=== PATIENT | male | born 1935 | race Caucasian/White ===

== ENCOUNTER 2017-07-14 07:28 | Outpatient (CLI) | payer MEDICARE ==
--- NOTE | 2017-07-14 08:02 | RAD ---
CHEST PA AND LATERAL: HISTORY: An 81-year-old male with dyspnea. COMPARISON: 06/14/2017 FINDINGS: Heart size is within normal limits. Lungs are clear. No pneumonia, edema, or pleural effusion. IMPRESSION: No active intrathoracic disease. Resolution of the previously noted right-sided pneumonia, compared to prior study. POS: [facility]
== END 2017-07-14 07:29 | disposition home or self-care (01) ==
LOC: RAD 07:28
PROVIDERS: ATTEND Internal Medicine Critical Care Medicine
DX: R06.00 Dyspnea, unspecified (principal); I48.0 Paroxysmal atrial fibrillation; J18.9 Pneumonia, unspecified organism; Z79.899 Other long term (current) drug therapy
CPT/HCPCS: 71020

== ENCOUNTER 2017-08-24 12:27 | Outpatient (CLI) | payer MEDICARE ==
--- NOTE | 2017-08-24 13:22 | RAD ---
CHEST PA AND LATERAL: History: 82-year-old male with dyspnea. Comparison: 07-14-17 FINDINGS: Heart size is within normal limits. There is atherosclerosis of the aorta with some ectasia. Stable b iapical pleural thickening. IMPRESSION: Stable bilateral chronic changes. No acute intrathoracic disease. POS: [facility]
== END 2017-08-24 12:28 | disposition home or self-care (01) ==
LOC: RAD 12:27
PROVIDERS: ATTEND Internal Medicine Critical Care Medicine
DX: R06.00 Dyspnea, unspecified (principal)
CPT/HCPCS: 71020

== ENCOUNTER 2018-01-03 16:03 | Inpatient (IN) | payer MEDICARE ==
[2018-01-03 16:44] LABS: #Basophils 0.1 thou/uL (0.0-0.2); #Eosinphils 0.1 thou/uL (0.0-0.7); #Lymphocytes 1.3 thou/uL (1.20-3.40); #Monocytes 0.8 thou/uL (0.11-0.59); #Neutrophils 5.6 thou/uL (1.40-6.50); %Basophils 0.7 % (0.0-1.0); %Lymphocytes 17.1 % (21.0-51.0); %Neutrophils 71.1 % (42.0-75.0); Hemoglobin 14.2 g/dL (14.0-18.0); Mean Corpuscular HGB CONC 31.7 g/dL (32.0-36.0); Mean Corpuscular Hemoglobin 31.4 pg (27.0-31.0); Mean Corpuscular Volume 99.1 fl (80.0-94.0); Mean Platelet Volume 9.3 fL (7.4-10.4); Platelet Count 110 thou/uL (130-400); RBC Distribution Width 14.9 % (11.5-14.5); Red Blood Cell (RBC) Count 4.51 mill/uL (4.70-6.10); White Blood Cell (WBC) Count 7.8 thou/uL (4.8-10.8)
[2018-01-03] MEDS ORDERED: Metoprolol Tartrate 5 MG/5 ML VIAL ONE (16:56)
[2018-01-03 17:04] LABS: ALT (SGPT) 14 U/L (8-55); AST (SGOT) 17 U/L (5-34); Albumin 3.9 g/dL (3.4-4.8); Alkaline Phosphatase 85 U/L (40-150); Anion Gap 13 mmol/L (10-20); BUN (Urea Nitrogen) 16 mg/dL (8.4-25.7); Bilirubin, Total 1.8 mg/dL (0.2-1.2); Calc. Creatinine Clearance 0 mL/min (70-130); Calcium 9.3 mg/dL (7.8-10.44); Carbon Dioxide 28 mmol/L (23-31); Chloride 99 mmol/L (98-107); Estimated GFR-MDRD 78; Globulin 2.8 g/dL (2.4-3.5); Glucose 95 mg/dL (83-110); Potassium 4.1 mmol/L (3.5-5.1); Protein, Total 6.7 g/dL (5.8-8.1); Sodium 136 mmol/L (136-145)
[2018-01-03 17:09] LABS: CKMB 1.2 ng/mL (0-6.6)
[2018-01-03] MEDS ORDERED: hydrALAZINE 10 MG TAB PO SCH (17:30)
[2018-01-03] MEDS ORDERED: Furosemide 40 MG/4 ML VIAL ONE (17:43)
[2018-01-03 17:47] LABS: Digoxin 1.23 ng/mL (0.8-2.0)
--- NOTE | 2018-01-03 17:52 | ULT ---
DOPPLER VENOUS ULTRASOUND OF THE LEFT LOWER EXTREMITY: INDICATIONS: Left lower extremity edema. TECHNIQUE: Patel-scale, color Doppler, and vascular duplex with spectral analysis was performed of the deep venou s structures of both lower extremities. The common femoral vein, superficial femoral vein, popliteal vein, posterior tibial vein, proximal greater saphenous, and proximal profunda veins were assessed bi laterally. FINDINGS: There is normal compression, flow, and augmentation seen within the deep venous structures of the lef t lower extremity. IMPRESSION: No evidence of deep venous thrombosis in the left lower extremity. POS: [facility]
[2018-01-03] MEDS ORDERED: Ketorolac Tromethamine 30 MG/ML VIAL ONE (18:13)
[2018-01-03] MEDS ORDERED: Acetaminophen 325 MG TAB PO PRN (18:13)
[2018-01-03] MEDS ORDERED: oxyCODONE 5 MG TAB PO PRN (18:24)
[2018-01-03] MEDS ORDERED: cefTRIAXone Sodium 1 MG in Syringe 0 ML IVPB SCH ×3 (18:30)
[2018-01-03] MEDS ORDERED: hydrALAZINE 10 MG TAB PO PRN (18:58)
--- NOTE | 2018-01-03 19:07 | RAD ---
AP VIEW CHEST: INDICATIONS: Cough and congestion. COMPARISON: 06/14/2017 FINDINGS: There is cardiomegaly without appreciable pulmonary vascular congestion. The lungs are clear. No pl eural effusion is evident. No acute osseous abnormality is evident. IMPRESSION: Cardiomegaly without overt radiographic evidence of congestive heart failure. POS: [facility]
[2018-01-03] MEDS: Ipratropium Bromide 2.5 ml Neb NEB SCH ×2 (19:15→22:17)
[2018-01-03] MEDS: Azithromycin 500 MG in Sodium Chloride 0.9% 250 ML 250 ML IVPB SCH (20:22)
[2018-01-03] MEDS: cefTRIAXone\\ROCEPHIN 1 GM, Syringe 0.4 ML in Sterile Water 9.6 ML SLOW IVP SCH (20:22)
[2018-01-03 20:34] LABS: CKMB 1.2 ng/mL (0-6.6); Troponin I 0.047 ng/mL (< 0.028)
--- NOTE | 2018-01-03 20:47 | HP ---
PRIMARY CARE PHYSICIAN: Lizeth Evans M.D. HISTORY OF PRESENT ILLNESS: The patient is an 82-year-old male with past medical history of chronic atrial fibrillation, on Xarelto; coronary artery disease, status post CABG; history of smoking; who p resented to the hospital with complaints of cough and not feeling well for the past 2-3 days. The pa loraine states that he has not been feeling well for the past week; however, for the past couple of day s, he has been coughing up white foamy sputum. The patient denies any fevers or chills, but states t hat he did have some runny nose. The patient denies any chest pain. The patient states that he does have malaise all over. The patient has been sleeping for the past few days on a recliner chair mini use of chronic right leg pain. The patient denies any PND. The patient states that he does feel a l ittle short of breath at home on ambulation. The patient states that he does not have a nebulizer an d does not have any inhalers at home. PAST MEDICAL HISTORY: 1. Chronic atrial fibrillation, on Xarelto. 2. Coronary artery disease, status post CABG. 3. Hypertension 4. Prostate cancer, completed radiation. 5. Chronic pain syndrome. 6. Peripheral vascular disease. 7. Gout. 8. Degenerative joint disease. 9. Reflux. PAST SURGICAL HISTORY: He had cardiac catheterization in 1999, had a cataract surgery, and skin canc er removal and also bypass. ALLERGIES: He has no known drug allergies. MEDICATIONS: From the ER were as the following: He takes allopurinol 300 mg daily; carvedilol 12.5 mg b.i.d.; digoxin 125 mcg daily; furosemide 20 mg Wednesday, Wednesday and Wednesday; lisinopril 40 mg maryann ly; multivitamin 1 daily; omeprazole 20 mg daily; Crestor 20 mg daily; hydralazine 10 mg t.i.d. p.r.n .; nitroglycerin 0.4 sublingual as needed; Xarelto 15 mg daily in the morning. SOCIAL HISTORY: The patient currently lives at home. He has a history of smoking in the past. Reynaldo ks socially and does not smoke anymore. FAMILY HISTORY: Positive for heart disease and cancer. REVIEW OF SYSTEMS: The following complete review of systems was negative, unless otherwise mentioned in the HPI or below: Constitutional: Weight loss or gain, ability to conduct usual activities. Sk in: Rash, itching. Eyes: Double vision, pain. ENT/Mouth: Nose bleeding, neck stiffness, pain, te nderness. Cardiovascular: Palpitations, dyspnea on exertion, orthopnea. Respiratory: Shortness of breath, wheezing, cough, hemoptysis, fever or night sweats. Gastrointestinal: Poor appetite, abdom inal pain, heartburn, nausea, vomiting, constipation, or diarrhea. Genitourinary: Urgency, frequenc y, dysuria, nocturia. Musculoskeletal: Pain, swelling. Neurologic/Psychiatric: Anxiety, depressio n. Allergy/Immunologic: Skin rash, bleeding tendency. All negative except for the ones mentioned a fracisco in the HPI. LABORATORY AND X-RAY FINDINGS: The patient's WBCs of 7.8, hemoglobin of 14.2, hematocrit of 44.7, pl atelets of 110, no bands noted. Chemistry: Sodium of 136, potassium 4.1, chloride of 99, anion gap of 13, BUN of 16, creatinine 0.93, mildly elevated bilirubin at 1.8. AST, ALT, alkaline phosphatase are normal. Troponins initially were 0.05. BNP was 635. The patient's chest x-ray was reviewed. I t appears he has got some hyperinflated lungs. I do not see this could be a possible little bit more prominent haziness on the right lower lobe; however, this could just be a little bit of fluid also. Respiratory viral panel is pending. PHYSICAL EXAMINATION: VITAL SIGNS: As following: Temperature of 97.8, blood pressure of 147/100, pulse rate of 75, respir ations are 18. He is 92% on room air. GENERAL: He is awake, alert, appears ill. CARDIOVASCULAR: S1, S2 present, irregularly irregular. LUNGS: Has coarse rhonchi all over with mild expiratory wheezing. ABDOMEN: Soft, nontender. Bowel sounds are present x2. HEENT: Has some fullness in his upper maxillary sinuses. No lymphadenopathy noted. EXTREMITIES: No edema. Pedal pulses are present x2. ASSESSMENT AND PLAN: The patient is a very pleasant 82-year-old male who initially presented to the hospital with complaints of shortness of breath. 1. Shortness of breath, possible due to viral versus bacterial etiology, versus mild diastolic dysfu nction versus a possible mild chronic obstructive pulmonary disease exacerbation. On the monitor whe n I was in the room, the patient's heart rate would fluctuate from 80s-145, which would not last for very long at the tachycardia and he would come back down to the 80s or the 70s. Could be possible si ck sinus syndrome. The patient's last echo was in 2015 with ejection fraction of 50% to 55%. We ever l repeat the echocardiogram. His proBNP is mildly elevated at 635. We will continue IV diuretics; h owever, no lower extremity edema has been noted and clinically the patient appears to be a little bit on the dehydrated side. No significant JVD also noted. We will check a procalcitonin level. X-ray does not appear to be impressive; however, I will wait for the official read. We will check a respi ratory viral panel, which is also pending. We will cover for patient for antibiotics for community-a cquired pneumonia for now. May de-escalate in the morning. There is a possibility that may be this patient's underlying cold or congestion could have caused some irritation, which could cause some tac hybrady syndrome, I am not sure. We will find out a little bit more once the echo is done. The deborah ent states that he has been feeling some palpitations for the past few days. Also, we will start the patient on ipratropium. We will hold off on the albuterol. We will not start the patient on some s teroids. I do not think at this point he needs steroids. 2. Elevated troponins. No significant EKG changes. He does appear to be tachycardic, it could be d emand ischemia. We will check echocardiogram if patient continues to have sick sinus syndrome. His heart rate is in the 60s or 70s or 80s and then goes up to the 140s and 150s; however, is not sustain ing, may consider getting a Cardiology on board. 3. Chronic atrial fibrillation. We will continue the patient's Xarelto. 4. Hypertension. We will continue patient's home medications. 5. Deep venous thrombosis prophylaxis. The patient is already on Xarelto.
[2018-01-03] MEDS ORDERED: Diltiazem HCl SR 60 mg Capsule PO SCH (21:00)
[2018-01-03 22:51] VITALS: BMI 19.7
[2018-01-03 23:57] LABS: Troponin I 0.056 ng/mL (< 0.028)
[2018-01-04] MEDS: Ipratropium Bromide 2.5 ml Neb NEB SCH ×6 (02:22→22:33)
[2018-01-04 05:16] LABS: #Eosinphils 0.2 thou/uL (0.0-0.7); #Lymphocytes 1.4 thou/uL (1.20-3.40); #Monocytes 0.8 thou/uL (0.11-0.59); #Neutrophils 3.9 thou/uL (1.40-6.50); %Basophils 0.1 % (0.0-1.0); %Eosinophils 2.6 % (0.0-10.0); %Lymphocytes 22.8 % (21.0-51.0); %Monocytes 12.5 % (0.0-10.0); %Neutrophils 61.9 % (42.0-75.0); Hemoglobin 13.2 g/dL (14.0-18.0); Mean Corpuscular HGB CONC 32.7 g/dL (32.0-36.0); Mean Corpuscular Hemoglobin 31.6 pg (27.0-31.0); Mean Corpuscular Volume 96.4 fl (80.0-94.0); Mean Platelet Volume 9.1 fL (7.4-10.4); Platelet Count 96 thou/uL (130-400); RBC Distribution Width 14.7 % (11.5-14.5); White Blood Cell (WBC) Count 6.3 thou/uL (4.8-10.8)
[2018-01-04 05:37] LABS: ALT (SGPT) 12 U/L (8-55); AST (SGOT) 18 U/L (5-34); Albumin 3.3 g/dL (3.4-4.8); Alkaline Phosphatase 72 U/L (40-150); Anion Gap 13 mmol/L (10-20); BUN (Urea Nitrogen) 19 mg/dL (8.4-25.7); Bilirubin, Total 1.2 mg/dL (0.2-1.2); Calc. Creatinine Clearance 41 mL/min (70-130); Calcium 8.8 mg/dL (7.8-10.44); Carbon Dioxide 30 mmol/L (23-31); Chloride 99 mmol/L (98-107); Estimated GFR-MDRD 62; Globulin 2.4 g/dL (2.4-3.5); Glucose 81 mg/dL (83-110); Potassium 4.1 mmol/L (3.5-5.1); Protein, Total 5.7 g/dL (5.8-8.1); Sodium 138 mmol/L (136-145)
[2018-01-04] MEDS ORDERED: Furosemide 40 MG/4 ML VIAL SLOW IVP SCH (06:00)
[2018-01-04] MEDS: Furosemide 40 MG/4 ML VIAL SLOW IVP SCH (07:12)
[2018-01-04] MEDS: Carvedilol 6.25 MG TAB PO SCH ×2 (08:11→16:56)
[2018-01-04] MEDS: Allopurinol 300 MG TAB PO SCH (08:11)
[2018-01-04] MEDS: Digoxin 0.125 MG TAB PO SCH (08:12)
[2018-01-04] MEDS: Ferrous Sulfate 325 MG TAB PO SCH (08:12)
[2018-01-04] MEDS: Lisinopril 20 MG TAB PO SCH (08:12)
[2018-01-04] MEDS: Rosuvastatin 20 MG TAB PO SCH ×2 (08:13)
[2018-01-04] MEDS: Rivaroxaban 15 MG TAB PO SCH (08:13)
[2018-01-04] MEDS: Saccharomyces boulardii 250 MG CAP PO SCH (08:13)
[2018-01-04] MEDS ORDERED: Gabapentin 300 MG CAP PO SCH (09:00)
[2018-01-04] MEDS ORDERED: Lisinopril 20 MG TAB PO SCH (09:00)
[2018-01-04] MEDS ORDERED: hydrALAZINE 10 MG TAB PO PRN (11:10)
--- NOTE | 2018-01-04 13:05 | CON ---
DATE OF CONSULTATION: 01/04/2018 REASON FOR CONSULTATION: Elevated troponin. HISTORY OF PRESENT ILLNESS: Mr. Mujica is an 82-year-old gentleman who is a patient of Dr. Javan Wheeler. He has a history of CAD, status post stent for inferior [place]. There is a notation about a pre vious history of bypass surgery which has not occurred. He recently states he was having coughing, spitting and phlegm production. He had thick mucus noted. No chest pain or pressure noted. His shortness of breath has been chronic. He is a previous smoke r and also continues to dip tobacco. His troponin was in the indeterminate range, therefore, prompti ng the consultation. PAST MEDICAL HISTORY: Chronic atrial fibrillation, DJD, PVD, prostate cancer, hypertension, CAD, sta tus post [place], acid reflux, cataract surgery, skin surgery. ALLERGIES: None. MEDICATIONS: Include allopurinol, digoxin, Lasix, multivitamin, omeprazole, Crestor, Xarelto, hydral azine and lisinopril. SOCIAL HISTORY: Positive dip tobacco. FAMILY HISTORY: Negative for CAD. REVIEW OF SYSTEMS: Twelve-point review of systems is reviewed as above, otherwise negative. PHYSICAL EXAMINATION: GENERAL: Patient is a pleasant male who is in no acute distress. The patient appears his stated age . VITAL SIGNS: Blood pressure 137/94, pulse 98, temperature afebrile. NEUROLOGIC: The patient is alert and oriented times 3 with no focal neurologic deficits. HEENT: Sclerae without icterus. Mouth has moist mucous membranes with normal pallor. NECK: No JVD. Carotid upstroke brisk. No bruits bilaterally. LUNGS: Clear to auscultation with unlabored respirations. BACK: No scoliosis or kyphosis. CARDIAC: Irregularly irregular. ABDOMEN: Soft, nontender, nondistended. No peritoneal signs present. No hepatosplenomegaly. No ab normal striae. EXTREMITIES: 2+ femoral and 2+ dorsalis pedis pulses. No cyanosis, clubbing, or edema. SKIN: No gross abnormalities. PERTINENT LABORATORY DATA: Hemoglobin 13.2. Peak troponin 0.056. BNP of 3635. IMPRESSION: 1. Elevated troponin. 2. Bronchitis versus upper respiratory infection. 3. Coronary artery disease. 4. Status post myocardial infarction. RECOMMENDATIONS: Mr. Mujica from a CV standpoint appears stable. His troponin is likely demand isch emia. This is not felt to be an acute coronary event. He appears to be stable. At this point, we w ould recommend continued pulmonary support. We will place him on secondary risk factor modification from a CAD standpoint. Further recommendations per Dr. Javan Wheeler in a.m.
--- NOTE | 2018-01-04 13:55 | PDOC.PN ---
- Subjective Encounter Start Date: 01/04/18 Encounter Start Time: 09:00 Patient is seen today, alert and oriented. Admitted with CHF and chest pain, is doing fine now, remains on oxygen. - Objective Resuscitation Status: Resuscitation Status FULL:Full Resuscitation MAR Reviewed: Yes Vital Signs & Weight: Vital Signs (12 hours) Temp Pulse Pulse Resp BP BP Pulse Ox 01/04/18 13:45 93 15 95 01/04/18 12:00 98.2 F 78 24 H 118/60 96 01/04/18 11:04 98 16 01/04/18 09:20 01/04/18 09:15 87 01/04/18 08:12 96 137/94 H 01/04/18 08:11 137/94 H 01/04/18 08:00 99.9 F H 98 24 H 137/94 H 95 01/04/18 07:09 96 01/04/18 07:06 80 20 96 01/04/18 04:00 99.9 F H 132 H 20 157/87 H 01/04/18 03:42 93 L Pulse Ox Pulse Ox 01/04/18 13:45 01/04/18 12:00 01/04/18 11:04 01/04/18 09:20 95 01/04/18 09:15 95 90 L 01/04/18 08:12 01/04/18 08:11 01/04/18 08:00 01/04/18 07:09 01/04/18 07:06 01/04/18 04:00 01/04/18 03:42 Weight Weight 126 lb Result Diagrams: 01/04/18 03:47 01/04/18 03:47 Radiology Reviewed by me: Yes EKG Reviewed by me: Yes Phys Exam - Physical Examination HEENT: PERRLA, moist MMs Neck: no nodes, no JVD Respiratory: wheezing present Crackles bilaterally Cardiovascular: RRR, no significant murmur Gastrointestinal: soft, non-tender Musculoskeletal: no edema, pulses present Neurological: non-focal, normal sensation Lymphatic: no nodes Psychiatric: normal affect, A&O x 3 Skin: no rash, normal turgor Dx/Plan (1) CHF (congestive heart failure) Code(s): I50.9 - HEART FAILURE, UNSPECIFIED Status: Acute Qualifiers: Qualified Code(s): I50.23 - Acute on chronic systolic (congestive) heart failure Comment: Will continue with Lasix, Pt remains on oxygen, Will clsoley monitor pending Echo (2) Respiratory failure Code(s): J96.90 - RESPIRATORY FAILURE, UNSP, UNSP W HYPOXIA OR HYPERCAPNIA Status: Acute Comment: s/p extubation earlier this AM. (3) Atrial fibrillation Code(s): I48.91 - UNSPECIFIED ATRIAL FIBRILLATION Status: Chronic Qualifiers: Atrial fibrillation type: chronic Qualified Code(s): I48.2 - Chronic atrial fibrillation Comment: on Xarelto, Will cotninue to Monitor, pt on Digoxin 0.125mg daily. rate controlled enow. (4) HTN (hypertension) Code(s): I10 - ESSENTIAL (PRIMARY) HYPERTENSION Status: Chronic Comment: Restrted home lisinopril 40mg po daily. (5) GINO (acute kidney injury) Code(s): N17.9 - ACUTE KIDNEY FAILURE, UNSPECIFIED Status: Resolved Comment : Continue to monitor renal fucntions while on lasix, likely cardiorenal. (6) NSTEMI (non-ST elevated myocardial infarction) Code(s): I21.4 - NON-ST ELEVATION (NSTEMI) MYOCARDIAL INFARCTION Status: Acute Comment: Likely demand ischemia, but worseing Tro levels Noted, so will consult Cardiology. Will check Echo for wall motion. (7) Acute exacerbation of chronic bronchitis Code(s): J20.9 - ACUTE BRONCHITIS, UNSPECIFIED; J42 - UNSPECIFIED CHRONIC BRONCHITIS Status: Acute Comment: Will cotninue with IV antibiotics now, No evidence of Pneumonia Noted. - Plan cont current plan of care, plan discussed w/ family, continue antibiotics, respiratory therapy, incentive spirometry, DVT proph w/lovenox * . - Discharge Day Encounter end time: 09:35 Review of Systems - Review of Systems Constitutional: negative: fever, chills, sweats, weakness, malaise, other Eyes: negative: Pain, Vision Change, Conjunctivae Inflammation, Eyelid Inflammation, Redness, Other ENT: negative: Ear Pain, Ear Discharge, Nose Pain, Nose Discharge, Nose Congestion, Mouth Pain, Mouth Swelling, Throat Pain, Throat Swelling, Other Respiratory: negative: Cough, Dry, Shortness of Breath, Hemoptysis, SOB with Excertion, Pleuritic Pain, Sputum, Wheezing Cardiovascular: edema. negative: chest pain, palpitations, orthopnea, paroxysmal nocturnal dyspnea, light headedness, other Gastrointestinal: Nausea, Vomiting Genitourinary: Dysuria, Frequency Musculoskeletal: Neck Pain, Shoulder Pain, Arm Pain Skin: Rash, Lesions - Medications/Allergies Allergies/Adverse Reactions: Allergies Allergy/AdvReac Type Severity Reaction Status Date / Time No Known Allergies Allergy Unverified 06/11/17 08:18 Medications: Current Medications Acetaminophen (Tylenol) 650 mg PO Q4H PRN PRN Reason: Headache/Fever or Pain Allopurinol (Zyloprim) 300 mg PO DAILY [facility] Last Admin: 01/04/18 08:11 Dose: 300 mg Carvedilol (Coreg) 12.5 mg PO BID-[facility] Last Admin: 01/04/18 08:11 Dose: 12.5 mg Digoxin (Lanoxin) 0.125 mg PO DAILY [facility] Last Admin: 01/04/18 08:12 Dose: 0.125 mg Ferrous Sulfate (Feosol) 325 mg PO DAILY [facility] Last Admin: 01/04/18 08:12 Dose: 325 mg Furosemide (Lasix) 40 mg SLOW IVP DAILY [facility] Last Admin: 01/04/18 07:12 Dose: 40 mg Hydralazine HCl (Apresoline) 10 mg PO TID PRN PRN Reason: Blood Pressure Hydralazine HCl (Apresoline) 10 mg PO TID PRN PRN Reason: Hypertension Azithromycin 500 mg/ Sodium (Chloride) 250 mls @ 250 mls/hr IVPB Q24HR [facility] Last Admin: 01/03/18 20:22 Dose: 250 mls Ceftriaxone Sodium 1 gm/ (Syringe 0.4 ml/ Sterile Water) 10 mls @ 120 mls/hr SLOW IVP Q24HR [facility] Last Admin: 01/03/18 20:22 Dose: 10 mls Ipratropium [place] (Atrovent) 2.5 ml NEB [id number] [facility] Last Admin: 01/04/18 13:45 Dose: 2.5 ml Lisinopril (Zestril) 40 mg PO DAILY [facility] Last Admin: 01/04/18 08:12 Dose: 40 mg Oxycodone HCl (Oxycodone Ir) 5 mg PO Q4H PRN PRN Reason: Pain Pantoprazole Sodium (Protonix) 40 mg PO DAILY [facility] Last Admin: 01/04/18 08:13 Dose: 40 mg Rivaroxaban (Xarelto) 15 mg PO DAILY [facility] Last Admin: 01/04/18 08:13 Dose: 15 mg Rosuvastatin Calcium (Crestor) 20 mg PO DAILY [facility] Last Admin: 01/04/18 08:13 Dose: 20 mg Saccharomyces Boulardii (Florastor) 250 mg PO DAILY [facility] Last Admin: 01/04/18 08:13 Dose: 250 mg
[2018-01-04] MEDS ORDERED: Rivaroxaban 15 MG TAB PO SCH (18:00)
[2018-01-04] MEDS: cefTRIAXone\\ROCEPHIN 1 GM, Syringe 0.4 ML in Sterile Water 9.6 ML SLOW IVP SCH (19:33)
[2018-01-04] MEDS ORDERED: Non-Formulary Item 1 EACH (Lisinopril [Lisinopril] 40 MG) PO SCH ×2 (21:00)
[2018-01-04] MEDS: Azithromycin 500 MG in Sodium Chloride 0.9% 250 ML 250 ML IVPB SCH (21:29)
[2018-01-05] MEDS: Ipratropium Bromide 2.5 ml Neb NEB SCH ×6 (02:28→22:41)
[2018-01-05] MEDS ORDERED: Rivaroxaban 15 MG TAB PO SCH (09:00)
[2018-01-05] MEDS: Carvedilol 6.25 MG TAB PO SCH (09:05)
[2018-01-05] MEDS: Digoxin 0.125 MG TAB PO SCH (09:05)
[2018-01-05] MEDS: Saccharomyces boulardii 250 MG CAP PO SCH (09:05)
[2018-01-05] MEDS: Allopurinol 300 MG TAB PO SCH (09:06)
[2018-01-05] MEDS: Lisinopril 20 MG TAB PO SCH (09:06)
[2018-01-05] MEDS: Ferrous Sulfate 325 MG TAB PO SCH ×2 (09:06→09:09)
[2018-01-05] MEDS: Furosemide 40 MG/4 ML VIAL SLOW IVP SCH (09:07)
[2018-01-05] MEDS: Rivaroxaban 15 MG TAB PO SCH (09:07)
[2018-01-05] MEDS: Rosuvastatin 20 MG TAB PO SCH ×2 (09:07)
[2018-01-05] MEDS ORDERED: Clopidogrel Bisulfate 75 MG TAB ONE (09:28)
[2018-01-05 12:08] LABS: Anion Gap 10 mmol/L (10-20); BUN (Urea Nitrogen) 19 mg/dL (8.4-25.7); Calc. Creatinine Clearance 41 mL/min (70-130); Calcium 9.3 mg/dL (7.8-10.44); Carbon Dioxide 37 mmol/L (23-31); Chloride 97 mmol/L (98-107); Estimated GFR-MDRD 62; Glucose 100 mg/dL (83-110); Potassium 4.2 mmol/L (3.5-5.1); Sodium 140 mmol/L (136-145)
--- NOTE | 2018-01-05 13:04 | PQF ---
CLINICAL DOCUMENTATION IMPROVEMENT CLARIFICATION FORM: ICD-10 Updated PLEASE DO AN ADDENDUM TO THE PROGRESS NOTE WITH ANY DOCUMENTATION UPDATES OR ADDITIONS AND CARRY THROUGH TO DC SUMMARY. THANK YOU. DATE: 01/05/18 ATTN: DR. GASTELUM Please exercise your independent, professional judgment in responding to the clarification form. Clinical indicators are provided on the bottom of this form for your review Please check appropriate box(s) to clarify if the following diagnosis has been ruled in or ruled out: NSTEMI [ x] Ruled in diagnosis [ ] Continue to treat [ x ] Resolved [ ] Ruled out diagnosis [ ] Cannot rule out diagnosis [ ] Other diagnosis [ ] Unable to determine In addition, please specify: Present on Admission (POA): [ x ] Yes [ ] No [ ] Unable to determine For continuity of documentation, please document condition throughout progress notes and discharge summary. Thank You. CLINICAL INDICATORS - SIGNS / SYMPTOMS / LABS CARDIOLOGY NOTE 01/04: "HIS TROPONIN IS LIKELY DEMAND ISCHEMIA. THIS IS NOT FELT TO BE AN ACUTE CORONARY EVENT." PROGRESS NOTE 01/04: " "NON-ST ELEVATION MYOCARDIAL INFARCTION." TROPONINS 0.050 / 0.047 / 0.056 RISKS: CAD HTN AFIB TREATMENT: CARDIOLOGY CONSULT SERIAL LABS ECHOCARDIOGRAM IV METOPROLOL ( GIVEN IN ER ) CARDIAC MONITORING (This form is maintained as a part of the permanent medical record) 2014 [employer]. All Rights Reserved [email or web address] Office: [phone] [facility]
--- NOTE | 2018-01-05 15:07 | PDOC.PN ---
- Subjective Encounter Start Date: 01/05/18 Encounter Start Time: 09:00 Patient is seen today, alert and oriented. No other concenr snoted. he doesnot want to many changes in his Cardiac meds. - Objective Resuscitation Status: Resuscitation Status FULL:Full Resuscitation MAR Reviewed: Yes Vital Signs & Weight: Vital Signs (12 hours) Temp Pulse Resp BP BP Pulse Ox 01/05/18 14:41 86 16 01/05/18 11:39 98.6 F 89 125/71 92 L 01/05/18 11:01 70 12 01/05/18 09:05 166/91 H 01/05/18 08:00 98.3 F 80 17 143/91 H 98 01/05/18 07:08 68 12 01/05/18 04:00 98.9 F 84 20 144/61 H 96 Weight Weight 124 lb I&O: 01/04/18 01/05/18 01/06/18 06:59 06:59 06:59 Intake Total 850 Output Total 1740 Balance -890 Result Diagrams: 01/04/18 03:47 01/05/18 11:44 Radiology Reviewed by me: Yes Phys Exam - Physical Examination HEENT: PERRLA, moist MMs Neck: no nodes, no JVD Respiratory: wheezing present Crackle present Cardiovascular: RRR, no significant murmur Gastrointestinal: soft, non-tender Musculoskeletal: no edema, pulses present Neurological: non-focal, normal sensation Lymphatic: no nodes Psychiatric: normal affect, A&O x 3 Dx/Plan (1) CHF (congestive heart failure) Code(s): I50.9 - HEART FAILURE, UNSPECIFIED Status: Acute Qualifiers: Qualified Code(s): I50.23 - Acute on chronic systolic (congestive) heart failure Comment: Will continue with Lasix, Pt remains on oxygen, Will clsoley monitor pending Echo (2) Respiratory failure Code(s): J96.90 - RESPIRATORY FAILURE, UNSP, UNSP W HYPOXIA OR HYPERCAPNIA Status: Resolved Comment: Stbale on IV lasix (3) Atrial fibrillation Code(s): I48.91 - UNSPECIFIED ATRIAL FIBRILLATION Status: Chronic Qualifiers: Atrial fibrillation type: chronic Qualified Code(s): I48.2 - Chronic atrial fibrillation Comment: on Xarelto, Will cotninue to Monitor, pt on Digoxin 0.125mg daily. rate controlled enow. Pt on Coreg increased to 25mg BID (4) HTN (hypertension) Code(s): I10 - ESSENTIAL (PRIMARY) HYPERTENSION Status: Chronic Comment: Restrted home lisinopril 40mg po daily. (5) GINO (acute kidney injury) Code(s): N17.9 - ACUTE KIDNEY FAILURE, UNSPECIFIED Status: Resolved Comment : Continue to monitor renal fucntions while on lasix, likely cardiorenal. (6) NSTEMI (non-ST elevated myocardial infarction) Code(s): I21.4 - NON-ST ELEVATION (NSTEMI) MYOCARDIAL INFARCTION Status: Acute Comment: Likely demand ischemia, but worseing Tro levels Noted, so will consult Cardiology. Will check Echo for wall motion. (7) Acute exacerbation of chronic bronchitis Code(s): J20.9 - ACUTE BRONCHITIS, UNSPECIFIED; J42 - UNSPECIFIED CHRONIC BRONCHITIS Status: Acute Comment: Will cotninue with IV antibiotics now, No evidence of Pneumonia Noted. - Plan cont current plan of care, plan discussed w/ family, PT/OT, manager social work, respiratory therapy, incentive spirometry * . - Discharge Day Encounter end time: 09:35 Review of Systems - Review of Systems Eyes: negative: Pain, Vision Change, Conjunctivae Inflammation, Eyelid Inflammation, Redness, Other ENT: negative: Ear Pain, Ear Discharge, Nose Pain, Nose Discharge, Nose Congestion, Mouth Pain, Mouth Swelling, Throat Pain, Throat Swelling, Other Respiratory: negative: Cough, Dry, Shortness of Breath, Hemoptysis, SOB with Excertion, Pleuritic Pain, Sputum, Wheezing Cardiovascular: negative: chest pain, palpitations, orthopnea, paroxysmal nocturnal dyspnea, edema, light headedness, other Gastrointestinal: negative: Nausea, Vomiting, Abdominal Pain, Diarrhea, Constipation, Melena, Hematochezia, Other Genitourinary: negative: Dysuria, Frequency, Incontinence, Hematuria, Retention , Other Musculoskeletal: negative: Neck Pain, Shoulder Pain, Arm Pain, Back Pain, Hand Pain, Leg Pain, Foot Pain, Other - Medications/Allergies Allergies/Adverse Reactions: Allergies Allergy/AdvReac Type Severity Reaction Status Date / Time No Known Allergies Allergy Unverified 06/11/17 08:18 Medications: Current Medications Acetaminophen (Tylenol) 650 mg PO Q4H PRN PRN Reason: Headache/Fever or Pain Allopurinol (Zyloprim) 300 mg PO DAILY [facility] Last Admin: 01/05/18 09:06 Dose: 300 mg [facility] Digoxin (Lanoxin) 0.125 mg PO DAILY [facility] Last Admin: 01/05/18 09:05 Dose: 0.125 mg Ferrous Sulfate (Feosol) 325 mg PO DAILY [facility] Last Admin: 01/05/18 09:09 Dose: Not Given Furosemide (Lasix) 40 mg SLOW IVP DAILY [facility] Last Admin: 01/05/18 09:07 Dose: 40 mg Hydralazine HCl (Apresoline) 10 mg PO TID PRN PRN Reason: Blood Pressure Last Admin: 01/04/18 17:11 Dose: 10 mg Hydralazine HCl (Apresoline) 10 mg PO TID PRN PRN Reason: Hypertension Azithromycin 500 mg/ Sodium (Chloride) 250 mls @ 250 mls/hr IVPB Q24HR [facility] Last Admin: 01/04/18 21:29 Dose: 250 mls Ceftriaxone Sodium 1 gm/ (Syringe 0.4 ml/ Sterile Water) 10 mls @ 120 mls/hr SLOW IVP Q24HR [facility] Last Admin: 01/04/18 19:33 Dose: 10 mls Ipratropium [place] (Atrovent) 2.5 ml NEB [id number] [facility] Last Admin: 01/05/18 14:41 Dose: 2.5 ml Lisinopril (Zestril) 40 mg PO DAILY [facility] Last Admin: 01/05/18 09:06 Dose: 40 mg Oxycodone HCl (Oxycodone Ir) 5 mg PO Q4H PRN PRN Reason: Pain Pantoprazole Sodium (Protonix) 40 mg PO DAILY [facility] Last Admin: 01/05/18 09:07 Dose: 40 mg Rivaroxaban (Xarelto) 15 mg PO DAILY [facility] Last Admin: 01/05/18 09:07 Dose: 15 mg Rosuvastatin Calcium (Crestor) 20 mg PO DAILY [facility] Last Admin: 01/05/18 09:07 Dose: 20 mg Saccharomyces Boulardii (Florastor) 250 mg PO DAILY [facility] Last Admin: 01/05/18 09:05 Dose: 250 mg
[2018-01-05] MEDS: Carvedilol 25 MG TAB PO SCH (17:06)
--- NOTE | 2018-01-05 18:49 | PDOC.CTH ---
Cardiology Progress Note - Subjective He is doing much better. He diuresed well with IV lasix. Cough is better. - Objective Vital Signs Temp Pulse Resp BP BP Pulse Ox 01/05/18 18:30 59 L 14 96 01/05/18 15:47 97.8 F 64 17 150/59 H 94 L 01/05/18 14:41 86 16 01/05/18 11:39 98.6 F 89 125/71 92 L 01/05/18 11:01 70 12 01/05/18 09:05 166/91 H 01/05/18 08:00 98.3 F 80 17 143/91 H 98 01/05/18 07:08 68 12 Weight 124 lb 01/04/18 01/05/18 01/06/18 06:59 06:59 06:59 Intake Total 850 1090 Output Total 1740 750 Balance -890 340 - Physical Examination General/Neuro: alert & oriented x3, NAD Neck: no JVD present Lungs: unlabored respirations Heart: other: (Irregular) Abdomen: NT/ND Extremities: other: (no edema.) - Telemetry Telemetry Rhythm: Afib HR 80-140 - Labs Result Diagrams: 01/04/18 03:47 01/05/18 11:44 Troponin/CKMB CK-MB (CK-2) 1.2 ng/mL (0-6.6) 01/03/18 19:54 Troponin I 0.056 ng/mL (< 0.028) H 01/03/18 23:23 - Assessment/Plan 1. Chronic afib, now in RVR 2. Acute bronchitis. 3. Acute diastolic heart failure, improved. 4. CAD, stable 5. Elevated troponins, demand ischemia. PLAN: - Switch lasix to home PO dose. - Continue abx per pirmary team. - Will need stress testing with his primary Architectural Representative Dr. Sherwood on discharge if not done within the last year. - Xarelto for CVA prophylaxis.
[2018-01-05] MEDS: Azithromycin 500 MG in Sodium Chloride 0.9% 250 ML 250 ML IVPB SCH (20:22)
[2018-01-05] MEDS: cefTRIAXone\\ROCEPHIN 1 GM, Syringe 0.4 ML in Sterile Water 9.6 ML SLOW IVP SCH (20:22)
--- NOTE | 2018-01-05 22:48 | CON ---
DATE OF CONSULTATION: 01/05/2018 HISTORY OF PRESENT ILLNESS: Martín Mujica is an 82-year-old male. He was seen in my office, we see his in the office as well. He presented with shortness of breath. He says he was called by the family to see him. I reviewed his chest radiograph. He has no pulmonary edema. He was put in with a diagnosis of congestive heart failure. He has an echocardiogram done this admission showing ejection fraction 55-60%. He does have moderate to severe mitral regurgitation on the echo. He says he is feeling better since he was admitted to the hospital. PAST MEDICAL HISTORY: Remarkable for, 1. Coronary artery disease with history of myocardial infarction. 2. History of prostate cancer. 3. History of hypertension. 4. History of lipid disorder. 5. History of atrial fibrillation. He is followed by Dr. Sherwood. 6. History of hospitalization last fall where he had developed respiratory failure associated with pneumonia. 7. History of normal ejection fraction. 8. History of anticoagulation for his atrial fibrillation. He was actually supratherapeutic on warfarin last admission. 9. History of acute kidney injury last admission. 10. Peripheral vascular disease. 11. History of a traumatic injury to his urethra that admission likely brought on by a Mckeon. FAMILY HISTORY: Negative for lung disease at an early age. SOCIAL HISTORY: Nonsmoker, nondrinker. ALLERGIES: He has no drug allergies. REVIEW OF SYSTEMS: 12 point review otherwise negative. HISTORY: He is now to a woman that he has known since he was 12. They were both to their spouses over 50 years and then after his spouse has , they came together. He is very supportive. He has had severe low back and right leg sciatic nerve pain for the last week, it was severe enough that his talked about calling an ambulance. He is followed by Dr. Fernandez. PHYSICAL EXAMINATION: GENERAL: He is in no distress. VITAL SIGNS: He is afebrile, heart rate 64, respiratory rate 17, oximetry is 94 % on room air, blood pressure 150/59. HEENT: Pupils are equal. Sclerae anicteric. NECK: Supple, no lymphadenopathy. Trachea is midline. LUNGS: Remarkable for diffuse wheezes. HEART: Regular rhythm, no S3. He does have a grade 3/6 systolic, mitral regurg murmur loudest at the left lower sternal border. ABDOMEN: Soft and nontender. No mass or organomegaly. EXTREMITIES: Without clubbing, cyanosis, or edema. LABORATORY DATA: White count yesterday 6.3, hemoglobin 13.2, platelets 96,000. Sodium 140, potassium 4.2, chloride 97, bicarbonate 37, BUN 19, creatinine 1.13. BNP is 289. Chest radiograph shows no pulmonary edema. IMPRESSION AND PLAN: Asthmatic bronchitis?. I doubt this is cardiac asthma, although it certainly could be. It could be cardiac asthma associated with mitral regurgitation. He says his nebulizer treatments are helping him. He is only on ipratropium. We will switch him to DuoNeb. He is not receiving any steroid. Dose of steroids may help. He is also not receiving any antimicrobial therapy. I discussed the above with the shoe patternmaker caring for him. This is a 50-minute consult greater than 50% of the time was spent on the unit coordinating care. DAMI
[2018-01-06] MEDS: Ipratropium Bromide 2.5 ml Neb NEB SCH ×4 (02:24→13:20)
[2018-01-06 06:03] LABS: Hemoglobin 12.8 g/dL (14.0-18.0); Platelet Count 113 thou/uL (130-400)
[2018-01-06] MEDS ORDERED: Furosemide 20 MG TAB PO SCH (09:00)
[2018-01-06] MEDS: Ferrous Sulfate 325 MG TAB PO SCH ×2 (09:12→09:14)
[2018-01-06] MEDS: Lisinopril 20 MG TAB PO SCH (09:13)
[2018-01-06] MEDS: Rosuvastatin 20 MG TAB PO SCH ×2 (09:13)
[2018-01-06] MEDS: Allopurinol 300 MG TAB PO SCH (09:13)
[2018-01-06] MEDS: Rivaroxaban 15 MG TAB PO SCH (09:13)
[2018-01-06] MEDS: Digoxin 0.125 MG TAB PO SCH (09:13)
[2018-01-06] MEDS: Saccharomyces boulardii 250 MG CAP PO SCH (09:13)
[2018-01-06] MEDS: Carvedilol 25 MG TAB PO SCH (09:13)
[2018-01-06 11:35] VITALS: BP 132/70; TEMP 98.2
--- NOTE | 2018-01-06 13:50 | DIS ---
DATE OF ADMISSION: 01/03/2018 DATE OF DISCHARGE: 01/06/2018 ADMITTING DIAGNOSES: Acute congestive heart failure and diastolic dysfunction. DISCHARGE DIAGNOSES: Acute congestive heart failure and diastolic dysfunction. SECONDARY DIAGNOSES: 1. Atrial fibrillation with rapid ventricular rate. 2. Acute and chronic bronchitis. 3. Hypertension. 4. Peripheral vascular disease. 5. Gastroesophageal reflux disease. MANAGER OF SOFTWARE DEVELOPMENT INVOLVED IN THE CARE: Cardiology. HISTORY OF PRESENT ILLNESS AND HOSPITAL COURSE: In brief, this is an 82-year-old white man with a kn own history of chronic atrial fibrillation on Xarelto with a known history of coronary artery disease and status post CABG, presented to the hospital complaining of cough and not feeling well for the ks st 2-3 days. Patient initially was coughing up white foamy sputum, but without any fever or chills. The patient was noted to have elevated BNP and also had some mild elevation of the troponins with mo re of demand ischemia. The patient was having atrial fibrillation with rapid ventricular rate, but h is rate was suddenly controlled with Cardizem in the ER and then the patient was later started on his home medications. The patient had some productive cough. The patient was started on IV antibiotics for acute on chronic bronchitis. The patient was also seen by Dr. Cedeño as a social visit. The pat ient showed good improvement and his heart rate was stable. He did have fluid in his lungs and was a ble to diurese with 40 mg IV Lasix. The patient had a good diuresis and was euvolemic at the day of discharge and the patient was discharged home in stable condition. PHYSICAL EXAMINATION: On date of discharge: VITAL SIGNS: Blood pressure 132/70, heart rate is 90, respiratory rate is 17, saturation is 93%. GENERAL: The patient is moderately built and moderately nourished, does not appears to be in any acu te distress at this time. Alert and oriented x3. HEENT: Atraumatic, normocephalic. PERRLA. Extraocular muscles were intact. Oral mucosa is pink an d moist. CARDIOVASCULAR: S1, S2 normal. No murmurs, rubs or gallops. LUNGS: Bilateral air entry was equal. No wheezing, no crackles. ABDOMEN: Soft, nontender, no guarding, no rebound tenderness. Bowel sounds normal. DISCHARGE MEDICATIONS: 1. Carvedilol 12.5 mg p.o. b.i.d. 2. Lasix 20 mg p.o. daily. 3. Fexofenadine and pseudoephedrine 1 tablet daily. 3. Nitroglycerin 0.5 mg sublingual as needed. 4. Allopurinol 300 mg p.o. daily. 5. Digoxin 0.125 mg p.o. daily. 6. Hydralazine 10 mg p.o. t.i.d. 7. Lisinopril 20 mg p.o. daily. 8. Xarelto 15 mg p.o. daily. 9. Rosuvastatin 20 mg p.o. daily. 10. New medications are azithromycin for bronchitis. Continue for 5 more days. 11. Ipratropium nebulizer was also given, nebulizing solution was also given 1 box. DISCHARGE INSTRUCTIONS: Continue activity as tolerated. Advised to follow with primary care maru haynes in one week. Advised to follow up with his Cardiology as scheduled on Wednesday. Advised to cont inue with low sodium diet. Advised to return back to the ER if the patient develops any further ches t pains or worsening shortness of breath. I spent 35 minutes on this patient on the day of discharge.
--- NOTE | 2018-01-06 14:19 | PRG ---
DATE OF SERVICE: 01/06/2018 SUBJECTIVE: The patient is in no distress. OBJECTIVE: VITAL SIGNS: He is afebrile, heart rate is 88, respiratory rate is 18, oximetry is 96 on room air, b lood pressure 150/70. LUNGS: Remarkable for only end expiratory wheezes. IMPRESSION: Asthmatic bronchitis, clinically improving. PLAN: I have written a prescription for nebulizer, prednisone, antibiotics. He will follow up with his primary director style, Dr. Sherwood. He will follow up with me in 2-3 weeks after he completes the steroid taper.
--- NOTE | 2018-01-06 18:36 | PDOC.CTH ---
Cardiology Progress Note - Subjective He is doing well. he feels back to baseline. - Objective Vital Signs Temp Pulse Resp BP Pulse Ox 01/06/18 11:32 98.2 F 90 17 132/70 93 L 01/06/18 10:01 88 18 96 01/06/18 07:15 98.5 F 78 17 139/86 94 L Weight 124 lb 1.6 oz 01/05/18 01/06/18 01/07/18 06:59 06:59 06:59 Intake Total 850 1440 Output Total 1740 1225 Balance -890 215 - Physical Examination General/Neuro: alert & oriented x3, NAD Neck: no JVD present Lungs: unlabored respirations Heart: other: (Irregular) Abdomen: NT/ND Extremities: other: (no edema) - Telemetry Telemetry Rhythm: Afib HR 80's. - Labs Result Diagrams: 01/06/18 05:16 01/06/18 05:16 Troponin/CKMB CK-MB (CK-2) 1.2 ng/mL (0-6.6) 01/03/18 19:54 Troponin I 0.056 ng/mL (< 0.028) H 01/03/18 23:23 - Assessment/Plan 1. Chronic afib, rate controlled. 2. Acute bronchitis. 3. Acute diastolic heart failure, improved. 4. CAD, stable 5. Elevated troponins, demand ischemia. PLAN: - Lasix at PO home dose. - Continue abx per pirmary team. - Will need stress testing with his primary Mental Health Social Worker Dr. Sherwood on discharge if not done within the last year. - Xarelto for CVA prophylaxis. - CV stable May discharge ho=me at any time on home medications.
== END 2018-01-06 14:17 | disposition home or self-care (01) | DRG 281 ==
LOC: ERS 16:03 → 2NO 17:37
PROVIDERS: ADMIT Internal Medicine; ATTEND Internal Medicine
DX: I11.0 Hypertensive heart disease with heart failure (principal); I21.4 Non-ST elevation (NSTEMI) myocardial infarction; I24.8 Other forms of acute ischemic heart disease; N17.9 Acute kidney failure, unspecified; J44.0 Chronic obstructive pulmonary disease with (acute) lower respiratory infection; J44.1 Chronic obstructive pulmonary disease with (acute) exacerbation; I48.2 Chronic atrial fibrillation; J20.9 Acute bronchitis, unspecified; I73.9 Peripheral vascular disease, unspecified; I50.33 Acute on chronic diastolic (congestive) heart failure; Z95.1 Presence of aortocoronary bypass graft; G89.4 Chronic pain syndrome; I25.10 Atherosclerotic heart disease of native coronary artery without angina pectoris; Z85.46 Personal history of malignant neoplasm of prostate; Z92.3 Personal history of irradiation; M10.9 Gout, unspecified; M19.90 Unspecified osteoarthritis, unspecified site; K21.9 Gastro-esophageal reflux disease without esophagitis; Z79.01 Long term (current) use of anticoagulants; I34.0 Nonrheumatic mitral (valve) insufficiency; I25.2 Old myocardial infarction; Z95.5 Presence of coronary angioplasty implant and graft; F17.220 Nicotine dependence, chewing tobacco, uncomplicated
CPT/HCPCS: 36415; 71045; 80048; 80053; 80162; 82553; 82565; 83880; 84484; 85014; 85018; 85025; 85049; 87040; 87633; 93005; 93306; 94150; 94640; 96374; 96375; A4216; G8978-GP-CJ; G8979-GP-CJ; G8980-GP-CJ; G8987-GO-CI; G8988-GO-CI; G8989-GO-CI; J0456; J0696; J1885; J1940; J7050; J7620; J7644

== ENCOUNTER 2018-01-19 12:21 | Outpatient (CLI) | payer MEDICARE ==
--- NOTE | 2018-01-19 13:53 | RAD ---
PA AND LATERAL VIEWS CHEST: HISTORY: Dyspnea. FINDINGS: Comparison is made with the exam of 08/24/17. The heart size is normal. The aorta is tortuous. The lungs are expanded without focal areas of cons olidation, pneumothorax, or pleural effusions. Biapical pleural thickening is stable. There are deg enerative changes in the spine. IMPRESSION: No radiographic evidence of acute cardiopulmonary process. POS: H
== END 2018-01-19 12:22 | disposition home or self-care (01) ==
LOC: RAD 12:21
PROVIDERS: ATTEND Internal Medicine Critical Care Medicine
DX: R06.00 Dyspnea, unspecified (principal)
CPT/HCPCS: 71046

== ENCOUNTER 2018-07-28 11:46 | Outpatient (CLI) | payer MEDICARE ==
--- NOTE | 2018-07-28 13:56 | RAD ---
CHEST PA AND LATERAL: Date: 07/28/18 HISTORY: 82-year-old male with history of dyspnea. COMPARISON: 01/19/18. FINDINGS: Heart size is normal. The lungs are clear. Mild biapical pleural thickening. IMPRESSION: No acute intrathoracic disease. Stable from prior study. POS: MEGAN
== END 2018-07-28 11:47 | disposition home or self-care (01) ==
LOC: RAD 11:46
PROVIDERS: ATTEND Internal Medicine Critical Care Medicine
DX: R06.00 Dyspnea, unspecified (principal)
CPT/HCPCS: 71046

== ENCOUNTER 2018-11-17 09:40 | Outpatient (CLI) | payer MEDICARE ==
[2018-11-17 11:43] LABS: Hemoglobin 13.2 g/dL (14.0-18.0); Mean Corpuscular HGB CONC 30.9 g/dL (32.0-36.0); Mean Corpuscular Hemoglobin 29.3 pg (27.0-31.0); Mean Corpuscular Volume 94.8 fL (78.0-98.0); Mean Platelet Volume 9.7 fL (7.4-10.4); Platelet Count 127 thou/uL (130-400); RBC Distribution Width 13.9 % (11.5-14.5); Red Blood Cell (RBC) Count 4.49 mill/uL (4.70-6.10); White Blood Cell (WBC) Count 7.2 thou/uL (4.8-10.8)
[2018-11-17 12:01] LABS: Anion Gap 10 mmol/L (10-20); BUN (Urea Nitrogen) 16 mg/dL (8.4-25.7); Calc. Creatinine Clearance 0 mL/min (70-130); Calcium 9.5 mg/dL (7.8-10.44); Carbon Dioxide 32 mmol/L (23-31); Chloride 102 mmol/L (98-107); Estimated GFR-MDRD 68; Glucose 87 mg/dL (83-110); Potassium 4.7 mmol/L (3.5-5.1); Sodium 139 mmol/L (136-145)
--- NOTE | 2018-11-17 13:21 | HP ---
HISTORY OF PRESENT ILLNESS: Mr. Mujica is an 83-year-old man who was recently seen by Dr. 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 He was recommended surgery, but the patient ultimately asked to be with us as well, specifically Dr. Flores. PAST MEDICAL HISTORY: Significant for: 1. Hypercholesterolemia. 2. Gout. 3. Coronary artery disease. 4. Hypertension. 5. Osteoarthritis. PAST SURGICAL HISTORY: None. CURRENT MEDICATIONS: 1. Lisinopril. 2. Niacin. 3. Carvedilol. 4. Amiodarone. 5. Allopurinol. 6. Omeprazole. 7. Warfarin. ALLERGIES: NO KNOWN DRUG ALLERGIES. PHYSICAL EXAMINATION: GENERAL: The patient is alert and oriented x3. NEUROLOGIC: Gait is significantly altered secondary to the right footdrop. He has really only 2+/5 strength in the right ankle with dorsiflexion. He plantar flexes well. Lumbar range of motion is maintained. ASSESSMENT: Lumbar disk herniation with footdrop. PLAN: Dr. Flores met with the patient, reviewed imaging and advocated for an L4 diskectomy. He explained to the patient the risks, benefits, and alternatives to the procedure. The patient expressed understanding and elected to move forward with surgery as discussed. I do believe the patient is mentally competent and capable of making medical decisions for himself. We will move forward with surgery as planned. Job ID: [id number]
== END 2018-11-17 09:41 | disposition home or self-care (01) ==
LOC: LABBT 09:40
PROVIDERS: ATTEND Neurological Surgery
DX: Z01.812 Encounter for preprocedural laboratory examination (principal); I48.0 Paroxysmal atrial fibrillation; Z79.899 Other long term (current) drug therapy
CPT/HCPCS: 80048; 85027

== ENCOUNTER 2018-11-21 05:42 | Observation (INO) | payer MEDICARE ==
[2018-11-17 09:12] VITALS: BMI 21.6
--- NOTE | 2018-11-17 13:21 | HP ---
HISTORY OF PRESENT ILLNESS: Mr. Mujica is an 83-year-old man who was recently seen by Dr. 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 He was recommended surgery, but the patient ultimately asked to be with us as well, specifically Dr. Flores. PAST MEDICAL HISTORY: Significant for: 1. Hypercholesterolemia. 2. Gout. 3. Coronary artery disease. 4. Hypertension. 5. Osteoarthritis. PAST SURGICAL HISTORY: None. CURRENT MEDICATIONS: 1. Lisinopril. 2. Niacin. 3. Carvedilol. 4. Amiodarone. 5. Allopurinol. 6. Omeprazole. 7. Warfarin. ALLERGIES: NO KNOWN DRUG ALLERGIES. PHYSICAL EXAMINATION: GENERAL: The patient is alert and oriented x3. NEUROLOGIC: Gait is significantly altered secondary to the right footdrop. He has really only 2+/5 strength in the right ankle with dorsiflexion. He plantar flexes well. Lumbar range of motion is maintained. ASSESSMENT: Lumbar disk herniation with footdrop. PLAN: Dr. Flores met with the patient, reviewed imaging and advocated for an L4 diskectomy. He explained to the patient the risks, benefits, and alternatives to the procedure. The patient expressed understanding and elected to move forward with surgery as discussed. I do believe the patient is mentally competent and capable of making medical decisions for himself. We will move forward with surgery as planned. Job ID: [id number]
[2018-11-21] MEDS ORDERED: Fentanyl 250 MCG/5 ML VIAL ONE (06:19)
[2018-11-21] MEDS ORDERED: Bupivacaine HCl 0.5%/Epinephrine 1:200,000/PF 30 ml Vial ONE (06:44)
[2018-11-21] MEDS ORDERED: Thrombin 5000 UNITS/5 ML VIAL ONE (06:44)
[2018-11-21] MEDS ORDERED: ePHEDrine/0.9% NaCl/PF SYRINGE 50 mg/10 ml ONE (08:08)
[2018-11-21] MEDS ORDERED: Fentanyl 100 MCG/2 ML VIAL ONE ×2 (09:05→09:38)
[2018-11-21] MEDS ORDERED: Tamsulosin HCl 0.4 MG CAP ONE (10:51)
--- NOTE | 2018-11-21 11:05 | OP ---
DATE OF PROCEDURE: 11/21/2018 STEWARD/STEWARDESS ROOM: Emmanuel Rodriguez PA-C INDICATION: Pain. DIAGNOSIS: Lumbar stenosis with foot drop. ANESTHESIA: General. DESCRIPTION OF PROCEDURE: The patient was brought into the operating room and placed under general anesthesia. He was flipped from a supine to prone position on the operating room table. A linear incision was planned over the L4-L5 segment. After prepping and draping and after an appropriate operative pause, the incision was created. The soft tissues were swept away from midline. Self-retaining retractors were placed. After confirming the appropriate level with C-arm fluoroscopy, high-speed cutting drill bit as well as 2, 3, and 4 mm Kerrisons were used to perform a laminectomy at the L4-L5 segment. The lateral recesses were well decompressed by performing the medial facetectomies. A broad-based disk bulge was identified bilaterally and entered bilaterally with an 11 blade knife until the protuberant portions were decompressed. The wound was then irrigated. Hemostasis was maintained throughout. The wound was then closed in anatomic layers and a pressure dressing was applied. There were no known procedural complications. Job ID: [id number]
[2018-11-21] MEDS ORDERED: diphenhydrAMINE 50 MG/ML VIAL IVP PRN (12:40)
[2018-11-21] MEDS ORDERED: Morphine 4 MG/ML VIAL SLOW IVP PRN (12:40)
[2018-11-21] MEDS ORDERED: Acetaminophen/Codeine 30-300mg Tablet PO PRN (12:40)
[2018-11-21] MEDS ORDERED: tiZANidine HCl 4 MG TAB PO PRN (12:40)
[2018-11-21] MEDS ORDERED: Bisacodyl 10 MG SUPP PR PRN (12:40)
[2018-11-21] MEDS ORDERED: Acetaminophen 325 MG TAB PO PRN (12:40)
[2018-11-21] MEDS ORDERED: Nitroglycerin 0.4 MG TAB (25 Tab Bottle) SL PRN (12:41)
[2018-11-21] MEDS ORDERED: Ondansetron PF 4 MG/2 ML Vial IVP SCH (13:00)
[2018-11-21] MEDS ORDERED: Acetaminophen/Codeine 30-300mg Tablet ONE (14:44)
[2018-11-21] MEDS ORDERED: PROPOFOL 200 MG/20 ML VIAL ONE (15:09)
[2018-11-21] MEDS ORDERED: Dexamethasone 20 MG/5 ML VIAL ONE (15:09)
[2018-11-21] MEDS ORDERED: Ondansetron PF 4 MG/2 ML Vial ONE (15:09)
[2018-11-21] MEDS ORDERED: Lidocaine 1% PF 5 ML VIAL ONE (15:09)
[2018-11-21] MEDS ORDERED: Rocuronium Bromide 10 MG/ML (10ML VIAL) ONE (15:09)
[2018-11-21] MEDS ORDERED: Glycopyrrolate 0.2 MG/ML 5 ML SYRINGE ONE (15:09)
[2018-11-21] MEDS ORDERED: ePHEDrine 50 MG/ML VIAL ONE (15:09)
[2018-11-21] MEDS ORDERED: hydrALAZINE 20 MG/ML VIAL ONE (17:14)
[2018-11-21] MEDS: Carvedilol 25 MG TAB PO SCH (19:52)
[2018-11-21] MEDS: Gabapentin 100 MG CAP PO SCH (19:54)
[2018-11-21] MEDS ORDERED: DULoxetine 30 MG CAP PO SCH (21:00)
[2018-11-21] MEDS ORDERED: Lisinopril 20 MG TAB PO SCH (21:00)
[2018-11-21] MEDS ORDERED: Rosuvastatin 20 MG TAB PO SCH (21:00)
[2018-11-21] MEDS ORDERED: Ezetimibe 10 MG TAB PO SCH (21:00)
[2018-11-21] MEDS: Ondansetron PF 4 MG/2 ML Vial IVP SCH ×2 (21:18→23:26)
[2018-11-21] MEDS: CEFAZOLIN 2 GM in Premix Bag 1 BAG IVPB SCH ×2 (21:18→23:28)
[2018-11-21] MEDS: Sodium Chloride 0.9% 1,000 ML IV SCH (21:19)
[2018-11-21] MEDS ORDERED: hydrALAZINE 10 MG TAB PO SCH (23:00)
[2018-11-22] MEDS: Sodium Chloride 0.9% 1,000 ML IV SCH ×2 (03:33→15:34)
[2018-11-22] MEDS: Ondansetron PF 4 MG/2 ML Vial IVP SCH ×3 (06:18→17:27)
[2018-11-22] MEDS: Carvedilol 25 MG TAB PO SCH (08:48)
[2018-11-22] MEDS: Gabapentin 100 MG CAP PO SCH (08:48)
[2018-11-22] MEDS: hydrALAZINE 10 MG TAB PO PRN ×2 (08:57→16:51)
[2018-11-22] MEDS ORDERED: Multivitamin W/ Minerals 1 TAB PO SCH (09:00)
[2018-11-22] MEDS ORDERED: Allopurinol 300 MG TAB PO SCH (09:00)
[2018-11-22] MEDS ORDERED: Digoxin 0.125 MG TAB PO SCH (09:00)
--- NOTE | 2018-11-22 13:25 | CON ---
DATE OF CONSULTATION: 11/22/2018 REASON FOR CONSULTATION: Atrial fibrillation. HISTORY OF PRESENT ILLNESS: Mr. Mujica is a very pleasant 83-year-old gentleman, patient of Dr. Olvin Sherwood, who comes to the hospital for a planned back surgery. He underwent this procedure yesterday morning. He did well. He has been doing rehab physical therapy in the hallways and is doing just fine. He denies any chest pain, tightness, or pressure. His shortness of breath is at his normal baseline. He has chronic atrial fibrillation and he has been on telemetry monitoring. His monitor shows heart rate is in the 90s to low 100s, mostly in the 90s. When he gets up to do things, it goes up to the low 110s. PAST MEDICAL HISTORY: 1. Chronic atrial fibrillation. 2. Coronary artery disease, status post angioplasty to the RCA in the setting of an acute NM in the year 1999. 3. Hypertension. 4. Prostate cancer. 5. Chronic pain. 6. History of diastolic heart failure. 7. Peripheral vascular disease. 8. Gout. 9. DJD. 10. GERD. 11. Diverticulosis. PAST SURGICAL HISTORY: 1. Cardiac cath as above. 2. Skin cancer removal. 3. Cataract surgery in 2002. OUTPATIENT MEDICATIONS: Include: 1. Zetia 10 mg at bedtime. 2. Acetaminophen with codeine. 3. Xarelto 15 mg. 4. Gabapentin. 5. Crestor 20 mg at bedtime. 6. Sublingual nitroglycerin. 7. Multivitamin daily. 8. Omeprazole. 9. Hydralazine 10 mg t.i.d. 10. Furosemide 20 mg daily. 11. Digoxin 0.125 mg a day. 12. Carvedilol 25 mg b.i.d. 13. Allopurinol 300 mg a day. 14. Lisinopril 40 mg at bedtime. 15. Duloxetine 30 mg at bedtime. ALLERGIES: NO KNOWN DRUG ALLERGIES. SOCIAL HISTORY: No drugs. Drinks social alcohol, and chews tobacco. FAMILY HISTORY: Noncontributory. REVIEW OF SYSTEMS: A 12-point review of systems is done, is unremarkable unless stated in the history of present illness. PHYSICAL EXAMINATION: VITAL SIGNS: Temperature 97.7, pulse 80, respiratory rate 18, saturating 98% on room air, blood pressure 139/62. GENERAL: Awake, alert, and oriented x3, in no distress. HEENT: Normocephalic, atraumatic. NECK: Supple. LUNGS: Clear. CARDIOVASCULAR: S1 and S2. No S3 or S4. No murmurs. Irregularly irregular. Heart rate in the 80s to 90s. ABDOMEN: Soft. Positive bowel sounds. EXTREMITIES: No edema. SKIN: Warm and dry. LABORATORY DATA: Laboratory work was reviewed. ASSESSMENT AND PLAN: 1. Chronic atrial fibrillation, currently reasonably well controlled. Heart rate ranges from the 80s to the low 110s, mostly when he stands up and does things with physical therapy. 2. Would recommend to continue home doses of both digoxin and carvedilol, which he has already started on. He is mostly rate controlled on current regimen. 3. Should be able to be discharged to rehab as soon as possible from the surgical standpoint. 4. Would restart Xarelto at outpatient dose 15 mg a day once cleared from surgical standpoint as well. Once the surgeon feels it is safe to restart full anticoagulation, this should be restarted immediately. 5. We will follow up with his primary Cardiology, Dr. Sherwood, in 1 month. 6. We will sign off. Please call with any questions. Job ID: [id number]
--- NOTE | 2018-11-22 16:21 | EKG ---
Test Reason : STAT Blood Pressure : / mmHG Vent. Rate : 116 BPM Atrial Rate : 101 BPM P-R Int : 000 ms QRS Dur : 132 ms QT Int : 302 ms P-R-T Axes : 000 090 007 degrees QTc Int : 419 ms Atrial fibrillation with rapid ventricular response Right bundle branch block Abnormal ECG Confirmed by MARINA NOLAND ([id number]) on 11/22/2018 4:21:18 PM Referred By: CHRIS Confirmed By:MARINA NOLAND
[2018-11-22 17:10] VITALS: TEMP 98.5
[2018-11-22 18:33] VITALS: BP 158/62
--- NOTE | 2018-11-23 07:21 | DIS ---
DATE OF ADMISSION: 11/21/2018 DATE OF DISCHARGE: 11/22/2018 Mr. Mujica is an 83-year-old man who was admitted to [facility] on 11/21/2018, in the postoperative period by Dr. Priyank Flores. He was subsequently discharged the following day on 11/22/2018. Hospital course was complicated by development of atrial fibrillation with rapid ventricular rate. He was transferred from the surgical floor to telemetry, corrected overnight. Consultations were ordered to Cardiology and an EKG was performed to confirm this. He did also develop some momentary hypertension which was amenable to hydralazine p.r.n. He does already take two daily blood pressure medications as well as medication for history of arrhythmia. During the course of his 24 hours in the hospital, he ambulated reasonably well, but consultations were ordered in addition to Cardiology to Physical and Occupational Therapy, Case Management, and Physical Medicine and Rehab. He was evaluated and determined that he would be a great candidate for inpatient rehabilitation and arrangements were made. He was ultimately discharged in the afternoon of November 22, 2018, in stable condition to inpatient rehab with outpatient followup anticipated in 2 weeks. Job ID: [id number] [facility]
[2018-11-23] MEDS ORDERED: Furosemide 20 MG TAB PO SCH (12:00)
== END 2018-11-22 20:39 | disposition home health service (06) ==
LOC: SDC 05:42 → SURG A 12:40 → 2NO 22:27
PROVIDERS: ADMIT Neurological Surgery; ATTEND Neurological Surgery
PROC: 01NB0ZZ Release Lumbar Nerve, Open Approach (ICD-10-PCS; principal; 2018-11-21)
DX: M51.36 Other intervertebral disc degeneration, lumbar region (principal); M48.061 Spinal stenosis, lumbar region without neurogenic claudication; M51.26 Other intervertebral disc displacement, lumbar region; M21.371 Foot drop, right foot; I25.10 Atherosclerotic heart disease of native coronary artery without angina pectoris; I48.2 Chronic atrial fibrillation; I25.2 Old myocardial infarction; I34.0 Nonrheumatic mitral (valve) insufficiency; I11.0 Hypertensive heart disease with heart failure; I50.22 Chronic systolic (congestive) heart failure; E78.00 Pure hypercholesterolemia, unspecified; E78.2 Mixed hyperlipidemia; M19.90 Unspecified osteoarthritis, unspecified site; M10.9 Gout, unspecified; K21.9 Gastro-esophageal reflux disease without esophagitis; Z95.5 Presence of coronary angioplasty implant and graft; Z87.01 Personal history of pneumonia (recurrent); Z85.46 Personal history of malignant neoplasm of prostate; Z92.3 Personal history of irradiation; Z90.89 Acquired absence of other organs; Z98.41 Cataract extraction status, right eye; Z98.42 Cataract extraction status, left eye; Z79.01 Long term (current) use of anticoagulants; Z79.899 Other long term (current) drug therapy
CPT/HCPCS: 63047; 76000; 93005; 96365; 96375; 96376; 97116; 97139 ×4; 97535; G0378 ×2; 93010; J0360; J0670; J1100; J2001; J2405; J2704; J3010; J3490

== ENCOUNTER 2020-04-23 09:50 | Outpatient (CLI) | payer MEDICARE ==
--- NOTE | 2020-04-23 10:26 | RAD ---
Chest 2 views HISTORY: Dyspnea. COMPARISON: 03/12/2008 and 04/04/2020. FINDINGS: Cardiac silhouette and pulmonary vasculature are unremarkable. Mediastinum is midline with aortic calcification. Lungs are well-inflated. Infiltrate within the left lower lobe on the prior study and is no longer vi sible. No lobar consolidation, pneumothorax, or pleural fluid. IMPRESSION : Interval clearing left lower lobe infiltrate. No new abnormalities. Atherosclerosis.
== END 2020-04-23 09:51 | disposition home or self-care (01) ==
LOC: BICRAD 09:50
PROVIDERS: ATTEND Internal Medicine Critical Care Medicine
DX: R06.00 Dyspnea, unspecified (principal); R91.8 Other nonspecific abnormal finding of lung field; I70.0 Atherosclerosis of aorta
CPT/HCPCS: 71046

== ENCOUNTER 2021-01-15 08:50 | Outpatient (CLI) | payer MEDICARE | END 2021-01-15 08:51 | disposition home or self-care (01) | LOC: BICRAD 08:50 | PROVIDERS: ATTEND Physician Assistant | DX: J18.9 Pneumonia, unspecified organism (principal); I51.7 Cardiomegaly | CPT/HCPCS: 71046 ==

== ENCOUNTER 2021-03-31 10:03 | Outpatient (CLI) | payer MEDICARE | END 2021-03-31 10:04 | disposition home or self-care (01) | LOC: BICRAD 10:03 | PROVIDERS: ATTEND Internal Medicine Critical Care Medicine | DX: R06.00 Dyspnea, unspecified (principal) | CPT/HCPCS: 71046 ==

== ENCOUNTER 2022-03-31 09:54 | Outpatient (CLI) | payer MEDICARE | END 2022-03-31 09:55 | disposition home or self-care (01) | LOC: RAD 09:54 | PROVIDERS: ATTEND Internal Medicine Critical Care Medicine | DX: R06.00 Dyspnea, unspecified (principal) | CPT/HCPCS: 71046 ==

== ENCOUNTER 2023-04-01 10:24 | Outpatient (CLI) | payer MEDICARE | END 2023-04-01 10:25 | disposition home or self-care (01) | LOC: RAD 10:24 | PROVIDERS: ATTEND Internal Medicine Critical Care Medicine | DX: R06.00 Dyspnea, unspecified (principal) | CPT/HCPCS: 71046 ==

== ENCOUNTER 2024-08-10 09:36 | Outpatient (CLI) | payer MEDICARE | END 2024-08-10 09:37 | disposition home or self-care (01) | LOC: ULT 09:36 | PROVIDERS: ATTEND Physician Assistant | DX: R31.9 Hematuria, unspecified (principal) | CPT/HCPCS: 76856 ==

== ENCOUNTER 2024-08-25 09:12 | Outpatient (CLI) | payer MEDICARE | END 2024-08-25 09:13 | disposition home or self-care (01) | LOC: BICCT 09:12 | PROVIDERS: ATTEND Physician Assistant | DX: R31.0 Gross hematuria (principal); N32.89 Other specified disorders of bladder; N20.1 Calculus of ureter | CPT/HCPCS: 36415; 74178; 82565 ==